=== PATIENT | male | born 1995 | race Caucasian/White ===

== ENCOUNTER 2018-09-18 01:18 | Emergency (ER) | payer OTHER ==
--- NOTE | 2018-09-18 01:25 | EDPHY ---
H & P Stated Complaint: poss infection on buttocks Time Seen by Provider: 09/18/18 01:25 HPI/ROS: HPI CHIEF COMPLAINT: Abscess HISTORY OF PRESENT ILLNESS: 23-year-old male, immunocompetent, denies any other significant medical history except depression, presents emergency room with pain and drainage from his right gluteal perineal region. Patient states for the past 4-5 days he has had some discomfort there. He stood up from a sitting position today and developed blood going down his legs from his gluteal region. This concerned him so he came to the emergency room. Upon arrival to the emergency room is noted to be non toxic, nad. He denies fever. And on exam a on his right inner gluteal fold and right peroneal region is an area of induration, no significant fluctuance, 2 cm x 4 cm. No anal discomfort. No crepitus on exam. Denies anal trauma. Past Medical History: No significant medical history Past Surgical History: Denies surgical history Social History: Denies drugs alcohol tobacco. Family History: Noncontributory ROS REVIEW OF SYSTEMS: 10 Systems were reviewed and negative with the exception of the elements mentioned in the history of present illness. Exam Constitutional triage nursing summary reviewed, vital signs reviewed, awake/ alert. Eyes normal conjunctivae and sclera, EOMI, PERRLA. HENT normal inspection, atraumatic, moist mucus membranes, no epistaxis, neck supple/ no meningismus, no raccoon eyes. Respiratory clear to auscultation bilaterally, normal breath sounds, no respiratory distress, no wheezing. Cardiovascular rate normal, regular rhythm, no murmur, no edema, distal pulses normal. Gastrointestinal soft, non-tender, no rebound, no guarding, normal bowel sounds, no distension, no pulsatile mass. Genitourinary gluteal region: Holly RN at bedside: Right gluteal perianal and perineal region is an abscess 2 cm x 4 cm indurated hard area to head, no fluctuance, No adelaide pus. Mildly tender palpation. No anal discomfort. No anal lesions. (drained prior to arrival) Musculoskeletal no midline vertebral tenderness, full range of motion, no calf swelling, no tenderness of extremities, no meningismus, good pulses, neurovascularly intact. Skin pink, warm, & dry, no rash, skin atraumatic. Neurologic awake, alert and oriented x 3, AAOx3, moves all 4 extremities equally, motor intact, sensory intact, CN II-XII intact, normal cerebellar, normal vision, normal speech. Psychiatric normal mood/affect. Heme/Lymph/Immune no lymphadenopathy. Differential Diagnosis: Includes but is not limited to in a particular order perirectal abscess, perianal abscess, necrotizing fasciitis, perineal abscess. Medical Decision Making: Plan for this patient IV establishment with blood draw , gentle IV fluids, CT scan pelvis with IV contrast to help delineate this and see how farm big it is. Make sure does not track. Re-evaluation: CT scan of the pelvis with IV contrast to help delineate this abscess this was reviewed by Dr. Elder. Unable to visualize a fluid collection or large abscess. She can see that the skin is indurated and thickened consistent with a cellulitis. Patient received Ancef here Patient be placed on Keflex and Bactrim. I recommend the patient that given that this is draining he should do warm compresses or warm soaks 2 to 3 times a day for 20 min. Take Keflex and Bactrim Return precautions discussed he understands return emergency room if develops worsening pain, fever, swelling, or any questions or concerns. He does have a small area of induration in the right gluteal fold peroneal region concerning for cellulitis. He did have drainage prior to arrival and had possibly a small fluid collection that drained. Again I do recommend Keflex and Bactrim I recommend warm compresses 2 to 3 times a day. Close return precautions return if worsening pain, swelling, fever. He should follow up with his primary care doctor. I will also provide General surgery follow-up as well However he understands if he has worsening pain, swelling or discomfort he needs to return emergency room. He is comfortable this plan. He is afebrile here nontoxic. Blood work reviewed. Return precautions discussed with the patient. Source: Patient - Personal History Current Tetanus/Diphtheria Vaccine: Yes Current Tetanus Diphtheria and Acellular Pertussis (TDAP): Yes - Medical/Surgical History Hx Asthma: No Hx Chronic Respiratory Disease: No Hx Diabetes: No Hx Cardiac Disease: No Hx Renal Disease: No Hx Cirrhosis: No Hx Alcoholism: No Hx HIV/AIDS: No Hx Splenectomy or Spleen Trauma: No Other PMH: wisdom teeth and sinus surgery - Social History Smoking Status: Never smoked Constitutional: Initial Vital Signs Temperature (C) 37.0 C 09/18/18 01:19 Heart Rate 128 H 09/18/18 01:19 Respiratory Rate 16 09/18/18 01:19 Blood Pressure 135/91 H 09/18/18 01:19 O2 Sat (%) 95 09/18/18 01:19 O2 Delivery Mode Room Air Allergies/Adverse Reactions: No Known Allergies Allergy (Unverified 09/18/18 01:23) Home Medications: Medication Instructions Recorded Cephalexin [Keflex] 500 mg PO Q6H #28 cap 09/18/18 Ibuprofen [Motrin (*)] 800 mg PO Q6-8PRN #10 tab 09/18/18 Prozac 10 MG (*) 09/18/18 Sulfamethox/Tmp 800/160 mg 1 tab PO BID@1000,2200 #14 tab 09/18/18 [Bactrim Ds] Medical Decision Making - Data Points Laboratory Results: Laboratory Results 09/18/18 01:30 09/18/18 01:30 09/18/18 09/18/18 01:30 01:30 WBC 11.46 10^3/uL H 10^3/uL (3.80-9.50) RBC 4.96 10^6/uL 10^6/uL (4.40-6.38) Hgb 15.9 g/dL g/dL (13.7-17.5) Hct 45.7 % % (40.0-51.0) MCV 92.1 fL fL (81.5-99.8) MCH 32.1 pg pg (27.9-34.1) MCHC 34.8 g/dL g/dL (32.4-36.7) RDW 13.3 % % (11.5-15.2) Plt Count 342 10^3/uL 10^3/uL (150-400) MPV 10.3 fL fL (8.7-11.7) Neut % (Auto) 69.8 % % (39.3-74.2) Lymph % (Auto) 18.2 % % (15.0-45.0) Barber % (Auto) 9.8 % % (4.5-13.0) Eos % (Auto) 0.3 % L % (0.6-7.6) Baso % (Auto) 0.7 % % (0.3-1.7) Nucleat RBC Rel Count 0.0 % % (0.0-0.2) Absolute Neuts (auto) 8.00 10^3/uL H 10^3/uL (1.70-6.50) Absolute Lymphs (auto) 2.08 10^3/uL 10^3/uL (1.00-3.00) Absolute Monos (auto) 1.12 10^3/uL H 10^3/uL (0.30-0.80) Absolute Eos (auto) 0.04 10^3/uL 10^3/uL (0.03-0.40) Absolute Basos (auto) 0.08 10^3/uL 10^3/uL (0.02-0.10) Absolute Nucleated RBC 0.00 10^3/uL 10^3/uL (0-0.01) Immature Gran % 1.2 % H % (0.0-1.1) Immature Gran # 0.14 10^3/uL H 10^3/uL (0.00-0.10) Sodium 139 mEq/L mEq/L (135-145) Potassium 3.6 mEq/L mEq/L (3.5-5.2) Chloride 105 mEq/L mEq/L (97-110) Carbon Dioxide 23 mEq/l mEq/l (22-31) Anion Gap 11 mEq/L mEq/L (6-14) BUN 11 mg/dL mg/dL (7-23) Creatinine 0.9 mg/dL mg/dL (0.7-1.3) Estimated GFR > 60 Glucose 158 mg/dL H mg/dL (70-100) Calcium 9.8 mg/dL mg/dL (8.5-10.4) Medications Given: Discontinued Medications Sodium Chloride (Ns) 1,000 mls @ 0 mls/hr IV ONCE ONE PRN Reason: Wide Open Stop: 09/18/18 01:39 Last Admin: 09/18/18 01:45 Dose: 1,000 mls Cefazolin Sodium/Dextrose (Ancef) 100 mls @ 200 mls/hr IV EDNOW ONE PRN Reason: Protocol Stop: 09/18/18 03:14 Last Admin: 09/18/18 03:27 Dose: 100 mls Departure - Departure Disposition: Home, Routine, Self-Care Clinical Impression: Abscess Condition: Good Instructions: Cephalexin (By mouth), Sulfamethoxazole/Trimethoprim (By mouth), Ibuprofen (By mouth), Cellulitis (ED), Abscess (ED) Additional Instructions: 1. I recommend warm compresses or warm soaks 2 to 3 times a day for 20 min. 2. Antibiotics as prescribed 3. Return emergency room if develops worsening pain, swelling, fever, not doing well Referrals: NONE *PRIMARY CARE P,. [Primary Care Provider] - As per Instructions Salvador Nguyen MD [Medical Doctor] - As per Instructions Prescriptions: Cephalexin [Keflex] 500 mg PO Q6H #28 cap Ibuprofen [Motrin (*)] 800 mg PO Q6-8PRN #10 tab Sulfamethox/Tmp 800/160 mg [Bactrim Ds] 1 tab PO BID@1000,2200 #14 tab
[2018-09-18] MEDS ORDERED: NS 1,000 ML IV ONE (01:38)
[2018-09-18] MEDS ORDERED: IOPAMIDOL (ISOVUE-300) 100 ML BTL ONE (01:42)
[2018-09-18 01:50] LABS: PLATELET COUNT 342 10^3/uL (150-400)
[2018-09-18] MEDS ORDERED: ceFAZolin 2 GM/DEXTROSE 100 ML IV ONE (02:45)
[2018-09-18 03:47] VITALS: BP 132/85
== END 2018-09-18 04:00 | disposition home or self-care (01) ==
DX: L02.31 Cutaneous abscess of buttock (principal); D84.9 Immunodeficiency, unspecified
CPT/HCPCS: 96365; Q9967